=== PATIENT | male | born 1930 | race Caucasian/White ===

== ENCOUNTER → 2018-11-14 | Outpatient (CLI) | payer MEDICARE, OTHER ==
--- NOTE | 2018-11-14 09:11 | XR ---
EXAMINATION TYPE: XR shoulder limited bilateral DATE OF EXAM: 11/14/2018 CLINICAL HISTORY: Sudden onset of bilateral shoulder pain with no known injury TECHNIQUE: 2 views of the bilateral shoulders were obtained. COMPARISON: None. FINDINGS: There is no acute fracture/dislocation evident in the either shoulder. The acromioclavicu lar and glenohumeral joint spaces of the bilateral shoulders demonstrate only mild arthropathy with v shyann small marginal osteophytes and minimal joint space narrowing. The visualized ribs are intact and unremarkable bilaterally. Soft tissues are unremarkable. Osseous mineralization is within normal herrera its. IMPRESSION: There is no acute fracture or dislocation in the either shoulder. 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
== END | disposition home or self-care (01) ==
LOC: RADXRYALE 08:43
PROVIDERS: ATTEND Internal Medicine
DX: M19.012 Primary osteoarthritis, left shoulder (principal); M19.011 Primary osteoarthritis, right shoulder